=== PATIENT | male | born 1960 | race Caucasian/White ===

== ENCOUNTER 2017-03-26 10:33 | Outpatient (CLI) | payer OTHER ==
[2015-12-19 22:12] VITALS: BP 130/80
[~2017-03-26 10:33] MED LIST: ALBUTEROL SULFATE 2.5 MG/3 ML AMPUL.NEB NEB ONE
== END 2017-03-26 10:34 ==
LOC: RT 10:33
PROVIDERS: ATTEND Family Medicine
DX: R06.00 Dyspnea, unspecified (principal)
CPT/HCPCS: 94060

== ENCOUNTER 2017-04-04 09:24 | Outpatient (CLI) | payer OTHER ==
[2015-12-19 22:12] VITALS: BP 130/80
[2017-04-04 09:47] LABS: BASOPHILS % 0.6 (0.0-1.5); EOSINOPHILS % 0.9 % (0.0-6.8); MEAN CORPUSCULAR VOLUME 79.2 fl (80.0-100.0); MONOCYTES % 3.5 % (0.0-11.0); NEUTROPHILS # 8.5 # k/uL (1.4-7.7)
[2017-04-04 10:18] LABS: eGFR (African) > 60; eGFR (Non-African) > 60
== END 2017-04-04 09:25 ==
LOC: LAB 09:24
PROVIDERS: ATTEND Family Medicine
DX: D64.9 Anemia, unspecified (principal); R73.9 Hyperglycemia, unspecified; I73.9 Peripheral vascular disease, unspecified
CPT/HCPCS: 36415; 80053; 80061; 83036; 85025

== ENCOUNTER 2017-04-23 09:12 | Outpatient (CLI) | payer OTHER ==
[2015-12-19 22:12] VITALS: BP 130/80
== END 2017-04-23 09:13 ==
LOC: RT 09:12
PROVIDERS: ATTEND Family Medicine
DX: R06.09 Other forms of dyspnea (principal)
CPT/HCPCS: 94620; 94761

== ENCOUNTER 2017-09-10 09:27 | Outpatient (CLI) | payer OTHER ==
[2015-12-19 22:12] VITALS: BP 130/80
--- NOTE | 2017-09-10 10:02 | Diagnostic Imaging Report ---
PATRICIA CHOUDHARY [facility] [address] [facility] [address] [address] Report Submission Date: Sep 10, 2017 9:58:31 AM DIGESTER HAND Patient Study Name: LEXI EAST Date: Sep 10, 2017 9:38:31 AM DIGESTER HAND Modality Type: CR Gender: M Description: SPINE : 56 Institution: [facility] Physician: PATRICIA CHOUDHARY Examination: Plain film lumbar spine History: Back discomfort Findings: 3 views of the lumbar spine demonstrate normal height. No anterior compression. Atherosclerotic disease involving the abdominal aorta and iliac vessels. Impression: No compression deformity. If patient is experiencing neurologic symptoms, consider obtaining MRI to further evaluate. Electronically signed on Sep 10, 2017 9:58:31 AM DIGESTER HAND by: Rich RUSSELL
== END 2017-09-10 09:30 ==
LOC: RAD 09:27
PROVIDERS: ATTEND Family Medicine
DX: M54.42 Lumbago with sciatica, left side (principal)
CPT/HCPCS: 72100

== ENCOUNTER 2017-10-15 08:35 | Outpatient (CLI) | payer OTHER ==
[2015-12-19 22:12] VITALS: BP 130/80
--- NOTE | 2017-10-15 13:50 | HISTORY AND PHYSICAL REPORT ---
REFERRING PHYSICIAN: Dr. Elle Duran Dear Dr. Duran: HISTORY OF PRESENT ILLNESS: I had the opportunity of seeing and evaluating Kannan Zuñiga today as an outpatient at [facility]. As you are aware, Mr. Zuñiga is a very nice 56-year-old white male diabetic. He is seen today with a chief complaint of low back pain and pain radiating to the hips. He gives me symptoms consistent with neurogenic claudication, bilateral leg pain, and weakness which radiates from the hips to the posterior thighs when he ambulates. He says that when he sits after a period of time, the symptoms resolve. This has been going on over the past 6 months and has been getting worse. He says the left is equal to the right and that ambulation, standing, bending, walking, and twisting exacerbate the condition and that lying down or sitting improves it. PAST MEDICAL HISTORY: 1. History of vision problems. 2. Hypertension. 3. COPD. 4. CVA. 5. Non-insulin dependent diabetes. PAST SURGICAL HISTORY: 1. Vascular surgery to bilateral lower extremities. 2. Ankle ORIF. MEDICATIONS: 1. Symbicort 160/4.5 b.i.d. 2. Combivent 20/100 q.i.d. 3. Ipratropium-albuterol 0.5/3 p.r.n. 4. Rosuvastatin 20 mg at bedtime. 5. Docusate 100 mg b.i.d. 6. Fenofibrate 160 mg daily. 7. Metformin 1000 mg b.i.d. 8. Ibuprofen 600 mg p.r.n. pain. 9. Aspirin 81 mg at bedtime. 10. Protonix 40 mg daily. 11. Flomax 0.4 mg daily. 12. Gabapentin 300 mg t.i.d. 13. Seroquel 300 mg at bedtime. 14. Diltiazem 240 mg daily. ALLERGIES: He has no known drug allergies. SOCIAL HISTORY: He is a current zjcl-lrtl-fnm-day smoker. Unknown alcohol use. Denies recreational drug use. He is . He has 4 children. He lives at home with 1 of them. He completed the 9th grade. He is not currently employed. Unknown previous occupation. He is disabled due to COPD. FAMILY HISTORY: Father with cardiac disease including an aneurysm and diabetes. Mother with diabetes and respiratory disease. REVIEW OF SYSTEMS: In the last month or so, he reports shortness of breath. Pain is worsened with walking, twisting, driving, getting up in the morning or in any position for too long. Pain is improved with lying down, sitting, and at rest. PHYSICAL EXAMINATION: General: The patient is well nourished, well developed, and in no apparent distress. Awake, alert, and oriented. HEENT: Pupils are equal, round, and reactive to light and accommodation. Extraocular movements intact. No facial droop. Neck: There is full range of motion of the cervical spine. No evidence of adenopathy. Thyroid is nontender, not enlarged. Carotids are without bruits. Chest: Clear to auscultation bilaterally. Normal chest excursion. Heart: Regular rate and rhythm without murmur. Abdomen: Benign. Normoactive bowel sounds. Motor/sensory: Intact in the upper and lower extremities. Moves all extremities freely. Back: Negative straight leg raise. Negative femoral nerve stretch. Negative Araceli. Strength is 5/5 and equal in the lower extremities. Reflexes are 2+ and equal at patellar tendons and Achilles tendons. ASSESSMENT: Lumbar spinal stenosis. PLAN: I suspect this gentleman is suffering from lumbar spinal stenosis. I am going to order an MRI study, as his blood sugar is 250 today. We will have him see Dr. Duran and obtain a hemoglobin A1c and follow him up for a lumbar epidural steroid injection in the near future. Thank you very much for allowing me to take part in the care of this nice gentleman. I appreciate the opportunity to take part in the care of your patients. cc: Dr. Elle RUSSELL
== END 2017-10-15 08:36 ==
LOC: OUT 08:35
PROVIDERS: ATTEND Anesthesiology Pain Medicine
DX: M48.07 Spinal stenosis, lumbosacral region (principal)
CPT/HCPCS: 99214; G0463

== ENCOUNTER 2017-10-16 10:46 | Outpatient (CLI) | payer OTHER ==
[2015-12-19 22:12] VITALS: BP 130/80
== END 2017-10-16 10:47 ==
LOC: LAB 10:46
PROVIDERS: ATTEND Anesthesiology Pain Medicine
DX: E11.9 Type 2 diabetes mellitus without complications (principal); M51.36 Other intervertebral disc degeneration, lumbar region
CPT/HCPCS: 36415; 83036

== ENCOUNTER 2017-10-31 13:36 | Outpatient (CLI) | payer OTHER ==
[2015-12-19 22:12] VITALS: BP 130/80
--- NOTE | 2017-10-31 19:18 | Diagnostic Imaging Report ---
ABDON BOX [facility] [address] [facility] [address] [address] Report Submission Date: Oct 31, 2017 2:17:35 PM ROUTE SALES DRIVER Patient Study Name: LEXI EAST Date: Oct 31, 2017 1:50:22 PM ROUTE SALES DRIVER Modality Type: DX Gender: M Description: CHEST : 56 Institution: [facility] Physician: ABDON BOX Examination: PA and lateral chest. History: CXR, WORSENING COUGH, WHEEZING, SOA X2 DAYS, HX COPD, SMOKER (Hx) Comparison exam: None available. Findings: PA lateral chest demonstrate a normal cardiac and mediastinal silhouette. Left basilar parenchymal haziness. No definite blunting of the posterior sulci. Osseous structures are appropriate for age. Impression: Left basilar haziness/infiltrate. No definite effusion. Electronically signed on Oct 31, 2017 2:17:35 PM ROUTE SALES DRIVER by: Rich RUSSELL
== END 2017-10-31 13:37 ==
LOC: RAD 13:36
PROVIDERS: ATTEND Physician Assistant
DX: R06.2 Wheezing (principal); R05 Cough
CPT/HCPCS: 71046

== ENCOUNTER 2017-11-19 13:41 | Outpatient (CLI) | payer OTHER ==
[2015-12-19 22:12] VITALS: BP 130/80
[2017-11-19 14:11] LABS: MEAN CORPUSCULAR VOLUME 83.6 fl (80.0-100.0)
[2017-11-19 14:13] LABS: BASOPHILS % 0.7 (0.0-1.5); EOSINOPHILS % 1.2 % (0.0-6.8); MONOCYTES % 3.6 % (0.0-11.0)
[2017-11-19 14:14] LABS: NEUTROPHILS # 5.9 # k/uL (1.4-7.7)
== END 2017-11-19 13:42 ==
LOC: LAB 13:41
PROVIDERS: ATTEND Physician Assistant
DX: M79.89 Other specified soft tissue disorders (principal)
CPT/HCPCS: 36415; 84550; 85025; 85379

== ENCOUNTER 2017-11-22 08:31 | Outpatient (CLI) | payer OTHER ==
[2015-12-19 22:12] VITALS: BP 130/80
[2017-11-22] MEDS ORDERED: diphenhydrAMINE HCL 25 MG TABLET PO ONE (09:36)
[2017-11-22] MEDS ORDERED: ACETAMINOPHEN 325 MG TABLET ONE (09:36)
[2017-11-22] MEDS ORDERED: FUROSEMIDE 20 MG/2 ML VIAL ONE (09:36)
[2017-11-22] MEDS ORDERED: 0.9 % SODIUM CHLORIDE 250 ML IV ONE (11:49)
== END 2017-11-22 08:32 ==
LOC: OUT 08:31
PROVIDERS: ATTEND Physician Assistant
DX: D50.0 Iron deficiency anemia secondary to blood loss (chronic) (principal)
CPT/HCPCS: 36415; 86885; 86900; 86901; 86920; J1940; J7050; Q0163; 36430; P9040

== ENCOUNTER 2017-11-27 12:59 | Outpatient (CLI) | payer OTHER ==
[2015-12-19 22:12] VITALS: BP 130/80
[2017-11-27 13:21] LABS: BASOPHILS % 0.6 (0.0-1.5); EOSINOPHILS % 1.3 % (0.0-6.8); MEAN CORPUSCULAR HEMOGLOBIN 23.5 pg (28.0-34.0); MEAN CORPUSCULAR VOLUME 86.1 fl (80.0-100.0); MONOCYTES % 3.7 % (0.0-11.0); NEUTROPHILS # 4.6 # k/uL (1.4-7.7)
== END 2017-11-27 13:00 ==
LOC: LAB 12:59
PROVIDERS: ATTEND Physician Assistant
DX: D50.0 Iron deficiency anemia secondary to blood loss (chronic) (principal)
CPT/HCPCS: 36415; 85025

== ENCOUNTER 2017-12-10 07:23 | Outpatient (CLI) | payer OTHER ==
[2015-12-19 22:12] VITALS: BP 130/80
--- NOTE | 2017-12-11 10:20 | LESI WITH FLUORO ---
SUBJECTIVE: Mr. Zuñiga returns today for a lumbar epidural steroid injection. His blood sugar has now normalized at 110. He says he really has not been checking it. His chief complaint is low back pain into both hips. He has an L5-S1 disc protrusion on MRI and otherwise multi-level spondylosis. He does have positive straight leg raises bilaterally and a positive assisted extension. OPERATIVE PROCEDURE: Left L5-S1 epidural steroid injection with fluoroscopic guidance. DESCRIPTION OF PROCEDURE: The risks and benefits were discussed with the patient including the risk of infection, bleeding, nerve injury, and headache, as well as the risks of steroid exposure causing hyperglycemia, hypertension, osteoporosis, or increased infectious risks. The patient understood these risks and agreed to proceed. Consent was obtained prior to the procedure. The patient was placed in the prone position on the fluoroscopy table with a pillow underneath the abdomen to afford anterior flexion of the lumbar spine. The low back was cleaned and a sterile drape was applied. An 18-gauge thin wall Tuohy epidural needle was advanced with normal saline loss of resistance technique and direct fluoroscopic guidance with a left paramedian approach at the L5-S1 level. On obtaining loss of resistance to normal saline, it was verified that there was no aspiration of CSF or blood. Furthermore, the needle tip location was verified with lateral and AP fluoroscopic views. Omnipaque 240 myelogram dye were injected through the epidural needle. The distribution of the dye was noted to be within the desired distribution within the lumbar epidural space. The medication was injected into the epidural space. The stylet was replaced in the needle and the needle was removed from the back. The patient tolerated the procedure well. The back was cleaned and a bandage was applied over the injection site. The patient was monitored for 20 minutes following the procedure. during this time the vital signs remained stable and the patient experienced no adverse sequelae. The patient was discharged in good condition. ASSESSMENT: 1. L5-S1 disc protrusion with bilateral pain at the sciatic notch. 2. Radiculitis. 3. Lumbar spondylosis demonstrated on MRI. PLAN: Left L5-S1 epidural steroid injection under fluoroscopy today. FOLLOWUP: Return to clinic if problems develop or worsen. cc: Dr. Elle RUSSELL
== END 2017-12-10 07:24 ==
LOC: OUT 07:23
PROVIDERS: ATTEND Anesthesiology Pain Medicine
DX: M51.17 Intervertebral disc disorders with radiculopathy, lumbosacral region (principal); M47.896 Other spondylosis, lumbar region
CPT/HCPCS: J3301; Q9966; 62323; 99213; G0463

== ENCOUNTER 2018-01-07 09:17 | Outpatient (CLI) | payer OTHER ==
[2015-12-19 22:12] VITALS: BP 130/80
[2018-01-07] MEDS ORDERED: PROPOFOL 200 MG/20 ML VIAL IV ONE (09:25)
[2018-01-07] MEDS ORDERED: TRIAMCINOLONE ACETONID 40MG/ML VIAL ONE (09:25)
[2018-01-07] MEDS ORDERED: Lidocaine 1% 5ml(IM or SUTURE)(PAIN CLINIC) ONE (09:25)
[2018-01-07] MEDS ORDERED: KETAMINE HCL 200 MG/20 ML VIAL ONE (09:25)
[2018-01-07] MEDS ORDERED: SALINE FLUSH 10 ML DISP.SYRIN IVF ONE (09:25)
[2018-01-07] MEDS ORDERED: NORMAL SALINE 500 ML IV.SOLN IV ONE (09:25)
[2018-01-07] MEDS ORDERED: BUPIVACAINE HCL/PF 2.5 MG/ML 10ML VIAL IV ONE (09:25)
--- NOTE | 2018-01-08 09:28 | LUMBAR FACET MBB ---
SUBJECTIVE: Mr. Zuñiga presents today with continued back pain. This is a 57-year-old white male tobacco user with lumbar spondylosis and some mild spinal stenosis. He got a couple of weeks of improvement with an epidural injection but the symptoms shortly returned. I have explained diagnostic facet medial branch blocks and he has requested IV sedation because of intolerance to needle sticks and anxiety. I am going to have him done with monitored anesthesia care from Juan Rios CRNA. PREOPERATIVE DIAGNOSIS: Lumbar spondylosis. POSTOPERATIVE DIAGNOSIS: Lumbar spondylosis. ANESTHESIA: Monitored anesthesia care by BIJAL. OPERATIVE PROCEDURE: Bilateral L4, L5, and sacral ala facet medial nerve branch blocks with fluoroscopic guidance. DESCRIPTION OF PROCEDURE: Consent was obtained after risks were fully explained including bleeding, infection, nerve damage, worsening of symptoms, and no improvement. The patient was positioned prone on the fluoroscopic procedure table and sterile prep and drape were applied. With monitored anesthesia care, under AP , oblique, and lateral fluoroscopic imaging, the L4 vertebral body and left L4 transverse process were identified. At this point, a needle was placed obliquely to the junction of the L4 transverse process and left L4 superior articulating process, and with a needle, it was verified in place under fluoroscopic visualization. There was negative aspiration of blood or CSF was obtained. Following this, the medication was placed. The stylet was replaced in the needle and the needle was subsequently removed from the back. In this exact same fashion, the right L4 superior articular process, bilateral L5, and bilateral sacral ala facet medial branch blocks were performed for a total of 6 medial branch nerve blocks. At the conclusion of the procedure and in addition to, bilateral S1 dorsal roots were also injected in a similar fashion. On completion of the procedure, the back was cleaned and a bandage was applied over the injection sites. The patient tolerated the procedure without complications. The patient was monitored for 20 minutes following the procedure during which time the patient experienced no adverse sequelae. The patient was discharged to home in good condition. ASSESSMENT: Lumbar spondylosis. PLAN: Bilateral L4, L5, and sacral ala facet medial nerve branch blocks with fluoroscopic guidance. FOLLOWUP: On discharge, a diary was given. Consider radiofrequency neurolysis with monitored anesthesia care. cc: ALDEN Low
== END 2018-01-07 09:19 ==
LOC: OUT 09:17
PROVIDERS: ATTEND Anesthesiology Pain Medicine
DX: M47.812 Spondylosis without myelopathy or radiculopathy, cervical region (principal)
CPT/HCPCS: 99213; G0463; J2704; J3301; J7060; J3490; Q9966; S1016

== ENCOUNTER 2018-02-11 09:27 | Outpatient (CLI) | payer OTHER ==
[2015-12-19 22:12] VITALS: BP 130/80
[2018-02-11] MEDS ORDERED: TRIAMCINOLONE ACETONID 40MG/ML VIAL ONE (09:28)
[2018-02-11] MEDS ORDERED: NORMAL SALINE 500 ML IV.SOLN IV ONE (09:28)
[2018-02-11] MEDS ORDERED: Lidocaine 2% 20ml Vial ONE (09:28)
[2018-02-11] MEDS ORDERED: KETAMINE HCL 200 MG/20 ML VIAL ONE (09:28)
[2018-02-11] MEDS ORDERED: SALINE FLUSH 10 ML DISP.SYRIN IVF ONE (09:28)
[2018-02-11] MEDS ORDERED: PROPOFOL 200 MG/20 ML VIAL IV ONE (09:28)
[2018-02-11] MEDS ORDERED: BUPIVACAINE HCL/PF 2.5 MG/ML 10ML VIAL IV ONE (09:28)
--- NOTE | 2018-02-13 18:18 | GENERIC FACET RF ---
SUBJECTIVE: Mr. Zuñiga presents today having immediate local anesthetic relief with his lumbar facets following a facet medial branch block. He had return of back pain and he presents today for bilateral L4-L5 and sacral ala facet radiofrequency neurolysis. I have asked for monitored anesthesia care from Prachi Arias CRNA, because of difficulty lying flat and intolerance to the previous facet procedure. ANESTHESIA: Monitored anesthesia care. PROCEDURE: Bilateral L4, L5, and sacral ala lumbar facet radiofrequency neurolyses with fluoroscopic guidance (neurolyses of 6 medial nerve branches). DESCRIPTION OF PROCEDURE: The risks and benefits of the procedure were explained to the patient including the risk of infection, bleeding and unintended nerve injury, including the risk of radicular motor or sensory nerve injury and increased pain following the procedure. In addition, the risk of steroid exposure causing hyperglycemia, hypertension, osteoporosis, and increased infectious risks were explained to the patient. The patient understood these risks and agreed to proceed. The patient was placed in the prone position on the fluoroscopy table. The low back was cleaned and sterile drapes were applied. AP, lateral and oblique fluoroscopic views were obtained of the lumbar spine. An oblique fluoroscopic view was obtained of the left L4 vertebral body and transverse process. A 10 centimeter RFK introducer needle with a 10 mm active tip was advanced under direct fluoroscopic guidance until the tip of the introducer needle was located parallel to the medial branch of the posterior nerve root supplying the facet joint. This location was at the junction of the left transverse process of L4 with the superior articulating process. It was verified that there was no aspiration of CSF or blood from the needle tip. AP and lateral fluoroscopic views were obtained to verify the position of the needle as located at the junction of the transverse process and superior articulating process and to verify that the needle tip was not located within the epidural or intrathecal space. A 10 centimeter RFK radiofrequency probe was then introduced via the introducer needle and a 2 Hz stimulus was effected, gradually increasing the voltage to 2.5 volts, to verify that there was no motor neuron activation causing significant muscle contraction in the lower extremity or back. The probe was then removed from the introducer needle. Then the medication was injected through the introducer needle. The probe was reintroduced into the needle. A radiofrequency lesion was then effected at a temperature of 80 degrees for a period of 60 seconds. The needle was then rotated 180 degrees and withdrawn approximately 3 mm and a second lesion was effected for a period of 60 seconds at a temperature of 80 degrees C. The stylet was replaced in the introducer needle and the introducer was removed from the back. This exact same procedure was repeated at the following levels: Right L4, bilateral L5, and bilateral sacral ala (for a total of 6 medial branch neurolyses). Bandages were applied over the injection sites. The patient was monitored for 20 minutes following the injection, during which time the patient experienced no adverse sequelae. The patient was discharge home in good condition with a armored car guard and driver driving the patient home. ASSESSMENT: Lumbar spondylosis. PLAN: Bilateral L4, L5, and sacral ala lumbar facet radiofrequency neurolyses with fluoroscopic guidance (neurolyses of 6 medial nerve branches). FOLLOWUP: Return to clinic if problems develop or worsen. cc: Jennifer RUSSELL
== END 2018-02-11 09:30 ==
LOC: OUT 09:27
PROVIDERS: ATTEND Anesthesiology Pain Medicine
DX: M47.816 Spondylosis without myelopathy or radiculopathy, lumbar region (principal)
CPT/HCPCS: 64635; 64636; 99214; G0463; J2704; J3301; J3490; J7060; Q9966; S1016

== ENCOUNTER 2018-03-03 15:11 | Outpatient (CLI) | payer OTHER ==
[2015-12-19 22:12] VITALS: BP 130/80
--- NOTE | 2018-03-03 15:55 | Diagnostic Imaging Report ---
LACHELLE LOPEZ [facility] [address] [facility].[address] [address] Report Submission Date: Mar 03, 2018 3:43:14 PM CDT Patient Study Name: LEXI EAST Date: Mar 03, 2018 3:14:22 PM CDT Modality Type: DX Gender: M Description: SPINE : 56 Institution: [facility] Physician: LACHELLE LOPEZ Lumbar spine History: Back pain AP and lateral projections of the lumbar spine demonstrate normal alignment. Vertebral body height and intervertebral disc space height is maintained. There is no spondylolisthesis or spondylolysis. There is heavy aortoiliac atherosclerosis. Impression: Heavy aortoiliac atherosclerosis. No osseous abnormality. Electronically signed on Mar 03, 2018 3:43:14 PM CDT by: Hali RUSSELL
== END 2018-03-03 15:13 ==
LOC: RAD 15:11
PROVIDERS: ATTEND Family Medicine
DX: M54.5 Low back pain (principal)
CPT/HCPCS: 72100

== ENCOUNTER 2018-03-24 15:50 | Outpatient (CLI) | payer OTHER ==
[2015-12-19 22:12] VITALS: BP 130/80
[2018-03-24 16:59] LABS: eGFR (African) > 60; eGFR (Non-African) > 60
== END 2018-03-24 15:52 ==
LOC: LAB 15:50
PROVIDERS: ATTEND Family Medicine
DX: I10 Essential (primary) hypertension (principal); I50.22 Chronic systolic (congestive) heart failure
CPT/HCPCS: 36415; 80053; 83880

== ENCOUNTER 2018-03-25 09:08 | Outpatient (CLI) | payer OTHER ==
[2015-12-19 22:12] VITALS: BP 130/80
--- NOTE | 2018-03-25 17:29 | Diagnostic Imaging Report ---
[facility] [address] [facility] [address] Report Submission Date: Mar 25, 2018 11:45:08 AM CDT Patient Study Name: LEXI EAST Date: Mar 25, 2018 9:28:26 AM CDT Modality Type: US Gender: M Description: : 56 Institution: [facility] Physician: LACHELLE LOPEZ - SHARON Examination: Ultrasound vein bilaterally History: Lower back/leg pain (acute) Findings: Sonographic evaluation of the lower extremity venous system from the groin to the popliteal fossa inclusive bilaterally. Normal compressibility. No luminal filling defect. Normal waveforms and response to augmentation. No popliteal region fluid collection. Calf vasculature not well visualized. Impression: No evidence for deep venous thrombosis. Electronically signed on Mar 25, 2018 11:45:08 AM CDT by: Rich RUSSELL
== END 2018-03-25 09:10 ==
LOC: RAD 09:08
PROVIDERS: ATTEND Family Medicine
DX: R22.43 Localized swelling, mass and lump, lower limb, bilateral (principal)
CPT/HCPCS: 93970

== ENCOUNTER 2018-04-23 08:53 | Outpatient (CLI) | payer OTHER ==
[2015-12-19 22:12] VITALS: BP 130/80
[2018-04-23 09:28] LABS: BASOPHILS % 0.5 (0.0-1.5); EOSINOPHILS % 1.5 % (0.0-6.8); MEAN CORPUSCULAR HEMOGLOBIN 31.7 pg (28.0-34.0); MEAN CORPUSCULAR VOLUME 99.2 fl (80.0-100.0); MONOCYTES % 3.1 % (0.0-11.0); NEUTROPHILS # 8.2 # k/uL (1.4-7.7)
[2018-04-23 09:55] LABS: eGFR (Non-African) > 60
== END 2018-04-23 08:54 ==
LOC: LAB 08:53
PROVIDERS: ATTEND Family Medicine
DX: D64.9 Anemia, unspecified (principal); I50.23 Acute on chronic systolic (congestive) heart failure; I10 Essential (primary) hypertension
CPT/HCPCS: 80048; 85025

== ENCOUNTER 2018-05-14 16:49 | Outpatient (CLI) | payer OTHER ==
[2015-12-19 22:12] VITALS: BP 130/80
--- NOTE | 2018-05-14 18:28 | Diagnostic Imaging Report ---
LACHELLE LOPEZ [facility] [address] [facility] [address] [place] [address]. [id number] Report Submission Date: May 14, 2018 5:12:50 PM CDT Patient Study Name: LEXI EAST Date: May 14, 2018 4:50:36 PM CDT Modality Type: DX Gender: M Description: CHEST : 56 Institution: [facility] Physician: LACHELLE LOPEZ Chest, PA and lateral. HISTORY Chest wall pain, fall, dyspnea. FINDINGS Left lower lobe atelectasis is present. There is no pneumothorax or pleural effusion. Heart size, mediastinum and pulmonary vascularity are normal. Healing left posterior seventh rib fracture is present. Healing right lateral eighth and ninth rib fractures are also present. IMPRESSION Left lower lobe atelectasis. Chronic appearing bilateral rib fractures. Electronically signed on May 14, 2018 5:12:50 PM CDT by: Phan RUSSELL
== END 2018-05-14 16:52 ==
LOC: RAD 16:49
PROVIDERS: ATTEND Family Medicine
DX: R06.09 Other forms of dyspnea (principal); S20.212A Contusion of left front wall of thorax, initial encounter; X58.XXXA Exposure to other specified factors, initial encounter; Y92.9 Unspecified place or not applicable; Y93.9 Activity, unspecified; Y99.9 Unspecified external cause status
CPT/HCPCS: 71046

== ENCOUNTER 2018-06-10 08:49 | Outpatient (CLI) | payer OTHER ==
[2015-12-19 22:12] VITALS: BP 130/80
[~2018-06-10 08:49] MED LIST changes: -ALBUTEROL SULFATE 2.5 MG/3 ML AMPUL.NEB NEB ONE; +Lidocaine 1% 5ml(IM or SUTURE)(PAIN CLINIC) ONE; +SALINE FLUSH 10 ML DISP.SYRIN IVF ONE; +TRIAMCINOLONE ACETONID 40MG/ML VIAL ONE
--- NOTE | 2018-06-10 10:58 | LESI WITH FLUORO ---
SUBJECTIVE: Mr. Zuñiga follows up with me today. This is a very nice 57-year-old white male with a history of lumbar spondylosis and an L5-S1 disc protrusion. He had a good response to lumbar facets and he underwent an L5, sacral ala, and S1 radiofrequency neurolysis. His pain resolved until he became very ill with an upper respiratory infection requiring intubation and prolonged hospitalization. He said he was in bed for several weeks. Now the pain is returning. He is also complaining of pain radiating down the hips when he walks and symptoms of significant neurogenic claudication and I am wondering if this is not related to the L5-S1 disc protrusion associated with lateral recess stenosis. At this point, I have recommended a trial with lumbar epidural steroid injection and, if that is successful, that would be a minimally invasive treatment for his spinal stenosis. At this point, he is in agreement. If his symptoms continue, I would consider placing a bilateral L4 radiofrequency neurolysis and consider repeating L5 as well. He is in agreement today. I am going to proceed with a left L5-S1 epidural steroid injection. OPERATIVE PROCEDURE: Left L5-S1 epidural steroid injection with fluoroscopic guidance. DESCRIPTION OF PROCEDURE: The risks and benefits were discussed with the patient including the risk of infection, bleeding, nerve injury, and headache, as well as the risks of steroid exposure causing hyperglycemia, hypertension, osteoporosis, or increased infectious risks. The patient understood these risks and agreed to proceed. Consent was obtained prior to the procedure. The patient was placed in the prone position on the fluoroscopy table with a pillow underneath the abdomen to afford anterior flexion of the lumbar spine. The low back was cleaned and a sterile drape was applied. A Tuohy epidural needle was advanced with normal saline loss of resistance technique and direct fluoroscopic guidance with a left paramedian approach at the L5-S1 level. On obtaining loss of resistance to normal saline, it was verified that there was no aspiration of CSF or blood. Furthermore, the needle tip location was verified with lateral and AP fluoroscopic views. Omnipaque 240 myelogram dye were injected through the epidural needle. The distribution of the dye was noted to be within the desired distribution within the lumbar epidural space. Then the medication was injected into the epidural space. The stylet was replaced in the needle and the needle was removed from the back. The patient tolerated the procedure well. The back was cleaned and a bandage was applied over the injection site. The patient was monitored for 20 minutes following the procedure. during this time the vital signs remained stable and the patient experienced no adverse sequelae. The patient was discharged in good condition. ASSESSMENT: L5-S1 disc protrusion with lateral recess stenosis and neurogenic claudication. PLAN: Left L5-S1 epidural steroid injection with fluoroscopic guidance. FOLLOWUP: Return to clinic if problems develop or worsen. cc: Dr. Elle RUSSELL
== END 2018-06-10 08:50 ==
LOC: OUT 08:49
PROVIDERS: ATTEND Anesthesiology Pain Medicine
DX: M51.27 Other intervertebral disc displacement, lumbosacral region (principal); M48.062 Spinal stenosis, lumbar region with neurogenic claudication
CPT/HCPCS: 62323; 99213; G0463; J3301

== ENCOUNTER 2018-08-20 14:27 | Outpatient (CLI) | payer OTHER ==
[2015-12-19 22:12] VITALS: BP 130/80
--- NOTE | 2018-08-20 17:37 | Diagnostic Imaging Report ---
LACHELLE LOPEZ [facility] [address] [facility] [address] [address] Report Submission Date: Aug 20, 2018 3:12:18 PM AREA CAPTAIN Patient Study Name: LEXI EAST Date: Aug 20, 2018 2:26:48 PM AREA CAPTAIN Modality Type: DX Gender: M Description: SPINE : 56 Institution: [facility] Physician: LACHELLE LOPEZ Examination: Plain film thoracic spine History: T-SPINE, T8 COMPRESSION FRACTURE NOTED ON LOW DOSE CT SCAN OF CHEST. Findings: 3 views of the thoracic spine demonstrates midthoracic anterior wedging. Scattered osteophytes. No prevertebral soft tissue abnormality. Impression: Degenerative changes. Mid thoracic anterior wedging. Electronically signed on Aug 20, 2018 3:12:18 PM AREA CAPTAIN by: Rich RUSSELL
== END 2018-08-20 14:30 ==
LOC: RAD 14:27
PROVIDERS: ATTEND Family Medicine
DX: S22.060A Wedge compression fracture of T7-T8 vertebra, initial encounter for closed fracture (principal)
CPT/HCPCS: 72072

== ENCOUNTER 2019-07-10 13:14 | Outpatient (CLI) | payer OTHER ==
[2015-12-19 22:12] VITALS: BP 130/80
[2019-07-10 13:55] LABS: BASOPHILS % 0.5 % (0.0-1.5); NEUTROPHILS # 6.1 # k/uL (1.4-7.7)
--- NOTE | 2019-07-10 14:14 | Diagnostic Imaging Report ---
PATIENT MR#: [id number] PATIENT PATIENT NAME: LEXI EATS DATE OF : 1960 REFERRING PHYSICIAN: Chris Newsome EXAM DATE: 07/10/2019 ACCESSION NUMBER: [id number] EXAM DESCRIPTION: CHEST 2VIEW PA and lateral chest History: Dyspnea on exertion PA and lateral chest dated July 10, 2019 is compared with May 14, 2018. The cardiomediastinal silhouette is within normal limits. There is chronic and unchanged pleural par enchymal density at the left lung base and there is an old fracture of the left 7th posterolateral rib. Mildly prominent but unchanged interstitial markings are present at the right lung base. No new focus of infiltrate or pleural effu gabby is noted. The lungs are mildly hyperinflated. Impression: COPD. Chronic findings as described. No appreciable change compared with April 2018. Read by: Dr. Hali Serrano Transcribed by: Transcribed Date: Electronically signed by: Dr. Hali Serrano Date signed: 07/10/2019 2:14:13 PM
[2019-07-10 14:28] LABS: eGFR (Non-African) 40
== END 2019-07-10 13:24 ==
LOC: RT 13:14
PROVIDERS: ATTEND Family Medicine
DX: R07.2 Precordial pain (principal); I10 Essential (primary) hypertension; R06.09 Other forms of dyspnea
CPT/HCPCS: 36415; 71046; 80053; 84484; 85025; 93005